=== PATIENT | female | born 2000 | race Caucasian/White ===

== ENCOUNTER → 2024-01-23 09:15 | Outpatient (REF) | payer BC, SELFPAY | LOC: DHSLP 09:15 | PROVIDERS: ATTENDING PHYSICIAN Internal Medicine | DX: G47.19 Other hypersomnia (principal); R06.83 Snoring | CPT/HCPCS: 95810 ==

== ENCOUNTER → 2024-01-24 11:45 | Outpatient (REF) | payer BC, SELFPAY | LOC: DHSLP 11:45 | PROVIDERS: ATTENDING PHYSICIAN Internal Medicine | DX: G47.419 Narcolepsy without cataplexy (principal) | CPT/HCPCS: 95805 ==